=== PATIENT | female | born 1980 | race Caucasian/White ===

== ENCOUNTER 2021-04-27 08:33 | Outpatient (CLI) | payer BC | END 2021-04-27 08:34 | disposition home or self-care (01) | LOC: CSHMAMMO 08:33 | PROVIDERS: ATTEND Obstetrics & Gynecology | DX: Z12.31 Encounter for screening mammogram for malignant neoplasm of breast (principal) | CPT/HCPCS: 77063; 77067 ==

== ENCOUNTER 2022-04-28 10:57 | Outpatient (CLI) | payer BC | END 2022-04-28 10:58 | disposition home or self-care (01) | LOC: CSHMAMMO 10:57 | PROVIDERS: ATTEND Obstetrics & Gynecology | DX: Z12.31 Encounter for screening mammogram for malignant neoplasm of breast (principal) | CPT/HCPCS: 77063; 77067 ==

== ENCOUNTER 2024-06-24 13:57 | Outpatient (CLI) | payer BC | END 2024-06-24 13:58 | disposition home or self-care (01) | LOC: CSHMAMMO 13:57 | PROVIDERS: ATTEND Obstetrics & Gynecology | DX: Z12.31 Encounter for screening mammogram for malignant neoplasm of breast (principal) | CPT/HCPCS: 77063; 77067 ==